=== PATIENT | female | born 1975 | race Caucasian/White ===

== ENCOUNTER 2018-06-07 17:58 | Emergency (ER) | payer MEDICAID ==
[2018-06-07] MEDS: DIPHENHYDRAMINE 25 MG CAP PO (20:45)
[2018-06-07] MEDS: METOCLOPRAMIDE 10 MG TAB PO (20:45)
[2018-06-07] MEDS: KETOROLAC 30 MG INJ IM (20:46)
[2018-06-07 21:38] LABS: URINE BLOOD (Dip) POC Negative (NEGATIVE); URINE GLUCOSE (Dip) POC Negative (NEGATIVE); URINE KETONES (Dip) POC Negative (NEGATIVE); URINE LEUKOCYTE EST (Dip) POC Negative (NEGATIVE); URINE NITRITE (Dip) POC Negative (NEGATIVE); URINE TOTAL PROTEIN POC Negative (NEGATIVE)
== END 2018-06-07 22:15 | disposition home or self-care (01) ==
LOC: FTE 22:15
DX: R51 Headache (principal)
CPT/HCPCS: 81003; 81025; 96372; 99284-25

== ENCOUNTER 2018-07-03 07:56 | Emergency (ER) | payer MEDICAID | END 2018-07-03 08:49 | disposition home or self-care (01) | LOC: FTE 07:56 | DX: M79.672 Pain in left foot (principal) | CPT/HCPCS: 73630; 73630-LT; 99283-25 ==